=== PATIENT | female | born 1990 | race Caucasian/White ===

== ENCOUNTER 2017-07-01 11:44 | Emergency (ER) | payer OTHER ==
[2017-07-01] MEDS: KETOROLAC 30 MG INJ IM (13:43)
[2017-07-01] MEDS: DIPHTH/TET/ACEL PERTUSS (ADULT) 0.5 ML VIAL IM* (13:44)
== END 2017-07-01 13:50 | disposition home or self-care (01) ==
LOC: FTE 11:44 → E/R 13:50
DX: M25.562 Pain in left knee (principal); Z23 Encounter for immunization
CPT/HCPCS: 73562; 81025; 90471; 90715; 96372; 99284-25